=== PATIENT | female | born 1985 | race Caucasian/White ===

== ENCOUNTER 2017-09-30 06:12 | Day surgery (SDC) | payer OTHER ==
[2017-09-30] MEDS ORDERED: LIDOCAINE 4% SOLUTION 50 ML BTL (07:27)
[2017-09-30] MEDS ORDERED: FENTAnyl 50 MCG/ML VIAL (08:29)
[2017-09-30] MEDS ORDERED: MIDAZOLAM 1 MG/ML 2 ML INJ ×3 (08:29)
== END 2017-09-30 10:06 | disposition home or self-care (01) ==
LOC: GIL 06:12
DX: K29.70 Gastritis, unspecified, without bleeding (principal); K44.9 Diaphragmatic hernia without obstruction or gangrene
CPT/HCPCS: 43239; 84703; 88305; 88312

== ENCOUNTER 2018-01-08 12:17 | Day surgery (SDC) | payer OTHER ==
[2018-01-08] MEDS ORDERED: CEFAZOLIN 2 GM/50 ML (PMX) 50 ML IVPB (14:00)
[2018-01-08] MEDS ORDERED: SOD CHLORIDE 0.9% 1,000 ML IV (14:00)
[2018-01-08] MEDS ORDERED: PHENYLephrine (100 MCG/ML) 5ML SYG (15:16)
[2018-01-08] MEDS ORDERED: BUPIVACAINE 0.25% (MPF) 30 ML INJ (16:26)
[2018-01-08] MEDS ORDERED: CEFAZOLIN 1 GM INJ (17:35)
[2018-01-08] MEDS ORDERED: PROPOFOL 20 ML (17:35)
[2018-01-08] MEDS ORDERED: FENTAnyl 50 MCG/ML VIAL (17:35)
[2018-01-08] MEDS ORDERED: ROPIVACAINE 0.5 % 30 ML VIAL (17:35)
[2018-01-08] MEDS ORDERED: MIDAZOLAM 1 MG/ML 2 ML INJ (17:35)
[2018-01-08] MEDS ORDERED: METOCLOPRAMIDE 10 MG INJ (18:03)
[2018-01-08] MEDS ORDERED: ONDANSETRON 4 MG INJ ×2 (18:03→18:43)
[2018-01-08] MEDS ORDERED: DEXAMETHASONE 4 MG/ML 1 ML INJ (18:03)
[2018-01-08] MEDS ORDERED: ACETAMINOPHEN 1000MG/100ML IV 100 ML (18:03)
[2018-01-08] MEDS ORDERED: KETOROLAC 30 MG INJ (18:03)
[2018-01-08] MEDS ORDERED: SUGAMMADEX SODIUM 200 MG/2 ML VIAL IV (18:08)
[2018-01-08] MEDS ORDERED: MEPERIDINE 25 MG INJ (18:21)
[2018-01-08] MEDS ORDERED: METOCLOPRAMIDE 10 MG INJ IV (18:30)
[2018-01-08] MEDS ORDERED: HYDROmorphONE 1 MG/5 ML IV SYRINGE IV ×3 (18:30→18:43)
[2018-01-08] MEDS ORDERED: LABETALOL HCL 20MG INJ IV (18:30)
[2018-01-08] MEDS ORDERED: FENTAnyl 50 MCG/ML VIAL IV ×3 (18:30)
[2018-01-08] MEDS ORDERED: OXYCODONE/ACETAMINOPHEN (5/325) TAB PO ×2 (18:30)
[2018-01-08] MEDS ORDERED: KETOROLAC 30 MG INJ IV (18:30)
[2018-01-08] MEDS ORDERED: DIPHENHYDRAMINE 50 MG INJ IV (18:30)
[2018-01-08] MEDS ORDERED: EPHEDrine SULFATE 50 MG/5 ML SYG IV (18:30)
[2018-01-08] MEDS: HYDROmorphONE 1 MG/5 ML IV SYRINGE IV (18:50)
[2018-01-08] MEDS: MEPERIDINE 25 MG INJ IV (18:50)
[2018-01-08] MEDS: HYDROCODONE/APAP (5/325) TAB PO (18:51)
[2018-01-08] MEDS: ONDANSETRON 4 MG INJ IV (18:51)
== END 2018-01-08 19:55 | disposition home or self-care (01) ==
LOC: SDS 12:17
DX: K82.4 Cholesterolosis of gallbladder (principal)
CPT/HCPCS: 47562; 88304